=== PATIENT | female | born 1940 | race Caucasian/White ===

== ENCOUNTER 2017-07-01 15:43 | Emergency (ER) | payer MEDICARE, OTHER ==
--- NOTE | 2017-07-01 16:12 | ER Document Report ---
ED Medical Screen (RME) - General Chief Complaint: Chest Pain Stated Complaint: CHEST PAIN Time Seen by Provider: 07/01/17 16:10 Notes: Patient presents with 2 days of severe right-sided neck and arm pain. She states this feels similar to previous angina. She states she did have a stress test performed today but does not know the results of this yet. She does have a history of stents and coronary artery bypass graft. She also has a defibrillator and pacemaker. She is currently having pain in the right neck. I am unable to give nitro due to patient's blood pressure of 88 systolic. TRAVEL OUTSIDE OF THE [place] IN LAST 30 DAYS: No - Related Data Allergies/Adverse Reactions: simvastatin [From Zocor] Allergy (Verified 07/01/17 16:01) Past Medical History Renal/ Medical History: Denies: Hx Peritoneal Dialysis Physical Exam - Vital signs Vitals: Temp Pulse Resp BP Pulse Ox 97.5 F 94 16 88/62 L 98 07/01/17 15:56 07/01/17 15:56 07/01/17 15:56 07/01/17 15:56 07/01/17 15:56 Course - Vital Signs Vital signs: Temp Pulse Resp BP Pulse Ox 97.5 F 94 16 88/62 L 98 07/01/17 15:56 07/01/17 15:56 07/01/17 15:56 07/01/17 15:56 07/01/17 15:56
[2017-07-01 16:32] LABS: ABSOLUTE BASOPHILS # (AUTO) 0.1 10^3/uL (0.0-0.2); ABSOLUTE EOSINOPHILS # (AUTO) 0.1 10^3/uL (0.0-0.6); ABSOLUTE LYMPHOCYTES (AUTO) 1.1 10^3/uL (0.5-4.7); ABSOLUTE MONOCYTES (AUTO) 0.9 10^3/uL (0.1-1.4); ABSOLUTE NEUT (AUTO) 8.7 10^3/uL (1.7-8.2); BASOPHILS % (AUTO) 0.6 % (0-2); HEMATOCRIT 40.2 % (36.0-47.0); HEMOGLOBIN 13.9 g/dL (12.0-15.5); HGB HCT DIFFERENCE 1.5; LYMPHOCYTES % (AUTO) 10.3 % (13-45); MEAN CORPUSCULAR HEMOGLOBIN 33.3 pg (27.0-33.4); MEAN CORPUSCULAR HGB CONC 34.7 g/dL (32.0-36.0); MEAN CORPUSCULAR VOLUME 96 fl (80-97); MONOCYTES % (AUTO) 8.2 % (3-13); RED BLOOD COUNT 4.18 10^6/uL (3.72-5.28); RED CELL DISTRIBUTION WIDTH 13.7 % (11.5-14.0); SEGMENTED NEUTROPHILS % (AUTO) 79.9 % (42-78); WHITE BLOOD COUNT 10.8 10^3/uL (4.0-10.5)
[2017-07-01] MEDS ORDERED: ASPIRIN 325 MG TABLET PO ONE (16:40)
[2017-07-01] MEDS ORDERED: NORMAL SALINE 1000 ML 1,000 ML IV ONE (16:40)
--- NOTE | 2017-07-01 16:40 | ER Document Report ---
ED Cardiac - General Mode of Arrival: Wheelchair Information source: Patient TRAVEL OUTSIDE OF THE [place] IN LAST 30 DAYS: No - HPI Patient complains to provider of: Chest pain. denies: Shortness of breath Pain level currently: 4 Associated symptoms: Other - see above <ELVER GUTIERREZ - Last Filed: 07/01/17 17:40> <JERRODNEO NGUYỄNINE - Last Filed: 07/01/17 21:15> <LEXI MITTAL - Last Filed: 07/01/17 21:20> - General Chief Complaint: Chest Pain Stated Complaint: CHEST PAIN Time Seen by Provider: 07/01/17 16:10 Notes: Patient is a 77 year old female who presents to the ED with complaints of chronic chest pain and new onset left side neck pain and left arm pain. Patient states the pain has been new for the past 3 weeks. Patient also complains of dizziness with standing. She states she had her Ranexa increased 3 weeks ago from 1000 mg a day to 2000 mg a day by Dr. High from [facility]. Patients street openings inspector is Dr. Painting. Patients last heart cath was done between [id number] and she had stents placed at that time. Patient rates her pain as a 4/5 and states it worsened in the past 4-5 days. Patient has taken her aspirin today and states she has not missed any doses of her daily medication. Patient states she is no more sob than normal. Patient has some nausea and vomiting this morning. Patient denies any fever. Patient had a nuclear stress test done this morning but she does not yet have results. Patient was advised by them to come to the ED for evaluation based on her symptoms. PCP: Dr. Garcia (ELVER GUTIERREZ) - Related Data Allergies/Adverse Reactions: simvastatin [From Zocor] Allergy (Verified 07/01/17 16:01) Past Medical History - General Information source: Patient - Social History Smoking Status: Former Smoker Chew tobacco use (# tins/day): No Frequency of alcohol use: None Drug Abuse: None - Past Medical History Cardiac Medical History: Reports: Hx Congestive Heart Failure, Hx Heart Attack, Hx Hypertension Denies: Hx DVT Pulmonary Medical History: Reports: Hx COPD Renal/ Medical History: Denies: Hx Peritoneal Dialysis - Immunizations Hx Diphtheria, Pertussis, Tetanus Vaccination: Yes <ELVER GUTIERREZ - Last Filed: 07/01/17 17:40> - Social History Family History: Reviewed & Not Pertinent <LEXI MITTAL - Last Filed: 07/01/17 21:20> Review of Systems - Review of Systems Constitutional: No symptoms reported. denies: Fever EENT: No symptoms reported Cardiovascular: See HPI, Chest pain, Dizziness Respiratory: No symptoms reported. denies: Short of breath Gastrointestinal: No symptoms reported Genitourinary: No symptoms reported Female Genitourinary: No symptoms reported Musculoskeletal: See HPI, Neck pain - left side, Other - left arm pain Skin: No symptoms reported Hematologic/Lymphatic: No symptoms reported Neurological/Psychological: No symptoms reported <MATTELVER - Last Filed: 07/01/17 17:40> Physical Exam <ELVER GUTIERREZ - Last Filed: 07/01/17 17:40> <ELLIOT ANDREWS - Last Filed: 07/01/17 21:15> <LEXI MITTAL - Last Filed: 07/01/17 21:20> - Vital signs Vitals: Temp Pulse Resp BP Pulse Ox 97.5 F 94 16 88/62 L 98 07/01/17 15:56 07/01/17 15:56 07/01/17 15:56 07/01/17 15:56 07/01/17 15:56 - Notes Notes: GENERAL: Alert, interacts well. No acute distress. Patient appears dizzy upon standing. HEAD: Normocephalic, atraumatic. EYES: Pupils equal, round, and reactive to light. Extraocular movements intact. ENT: Oral mucosa moist, tongue midline. NECK: Full range of motion. Supple. Trachea midline. LUNGS: Clear to auscultation bilaterally, no wheezes, rales, or rhonchi. No respiratory distress. HEART: Regular rate and rhythm. No murmurs, gallops, or rubs. ABDOMEN: Soft, non-tender. Non-distended. Bowel sounds present in all 4 quadrants. EXTREMITIES: Moves all 4 extremities spontaneously. No edema, radial and dorsalis pedis pulses 2/4 bilaterally. No cyanosis. NEUROLOGICAL: Alert and oriented x3. Normal speech. PSYCH: Normal affect, normal mood. SKIN: Warm, dry, normal turgor. No rashes or lesions noted. (ELVER GUTIERREZ) Course - Laboratory Result Diagrams: 07/01/17 16:25 07/01/17 16:25 <ELVER GUTIERREZ - Last Filed: 07/01/17 17:40> - Laboratory Result Diagrams: 07/01/17 16:25 07/01/17 16:25 - Consults Dr. Stone Time consulted: 19:30 <ELLIOT ANDREWS - Last Filed: 07/01/17 21:15> - Laboratory Result Diagrams: 07/01/17 16:25 07/01/17 16:25 <LEXI MITTAL - Last Filed: 07/01/17 21:20> - Re-evaluation Re-evalutation: 07/01/17 21:16 Initial CBC shows slight leukocytosis 10.8, normal hemoglobin, CMP shows slightly low sodium at 133.1, she does have some kidney disease with a BUN of 41 and creatinine 1.72, speaking with patient this appears to be chronic although we do not have exact numbers to compare to. Initial cardiac enzymes are negative. Second set of cardiac enzymes not significantly changed at 0.013 and her CK and CK-MB have actually both declined. EKG is nonischemic. And repeat EKG is unchanged with an atrially sensed ventricularly paced rhythm. I did discuss this patient with Dr. Stone who is the street openings inspector on-call for her cardiology group, he did interpret her stress test for me which showed no ischemia and no significant change from prior imaging in December. Agrees that so long as her cardiac enzymes continue to remain negative she may be discharged after a second set and follow-up with them as an outpatient. 07/01/17 21:18 After a fluid bolus the patient's hypotension has resolved and her dizziness has decreased although it has not completely resolved. Patient will be discharged home. (LEXI MITTAL) - Vital Signs Vital signs: Temp Pulse Resp BP Pulse Ox 97.5 F 94 19 102/64 93 07/01/17 15:56 07/01/17 15:56 07/01/17 19:01 07/01/17 19:01 07/01/17 19:01 - Laboratory Laboratory results interpreted by me: 07/01/17 07/01/17 16:25 16:25 WBC 10.8 H Seg Neutrophils % 79.9 H Lymphocytes % 10.3 L Absolute Neutrophils 8.7 H Sodium 133.1 L Chloride 92 L BUN 41 H Creatinine 1.72 H Est GFR ( Amer) 35 L Est GFR (Non-Af Amer) 29 L AST 66 H - EKG Interpretation by Me Additional EKG results interpreted by me: 07/01/17 21:18 Initial EKG shows an atrially sensed ventricularly paced rhythm at a rate of 97 , no ectopy, no significant ST segment elevation, poor R-wave progression per my interpretation. Repeat EKG shows atrially sensed ventricularly paced rhythm at a rate of 93, no ST segment elevations, there is minimal ST segment depression in V3 and aVF which is not significant, no ectopy, poor R-wave progression per my interpretation. (LEXI MITTAL) - Consults Dr. Stone Reason for consultation: 07/01/17 19:[address] Romaine Stone with [facility] to discuss patient; he will interpret the patient's nuclear stress test and call back. 07/01/17 19:[address] Romaine Stone with [facility]. He states the patient's nuclear stress test is ischemic and similar to the previous. Patient' s ejection fraction is 20-25% which is unchanged. He recommends doing a rapid rule out of cardiac enzymes x2 each 3 hours apart; if these are normal then the patient can be discharged home. (ELLIOT ANDREWS) Discharge <ELVER GUTIERREZ - Last Filed: 07/01/17 17:40> <ELLIOT ANDREWS - Last Filed: 07/01/17 21:15> <LEXI MITTAL - Last Filed: 07/01/17 21:20> - Discharge Clinical Impression: Stable angina pectoris Condition: Stable Disposition: HOME, SELF-CARE Additional Instructions: I do not know what exactly is causing your left-sided neck and arm pain. It does not appear to be a heart attack today. Should your pain worsen, should your shortness of breath worsen or you develop any new or concerning symptoms please return to the emergency department immediately. Otherwise follow-up with your street openings inspector as an outpatient as scheduled. Scribe Attestation: 07/01/17 21:20 I personally performed the services described in the documentation, reviewed and edited the documentation which was dictated to the scribe in my presence, and it accurately records my words and actions. (LEXI MITTAL) Scribe Documentation - Scribe Written by Virginia:: virginia Mann. 07/01/2017, 1748 acting as scribe for :: Amelia <ELVER GUTIERREZ - Last Filed: 07/01/17 17:40>
[2017-07-01 16:45] LABS: ALANINE AMINOTRANSFERASE 50 U/L (9-52); ALBUMIN 4.9 g/dL (3.5-5.0); ALKALINE PHOSPHATASE 59 U/L (38-126); ANION GAP 15 (5-19); ASPARTATE AMINO TRANSFERASE 66 U/L (14-36); BILIRUBIN,DIRECT 0.3 mg/dL (0.0-0.4); BILIRUBIN,TOTAL 0.8 mg/dL (0.2-1.3); BLOOD UREA NITROGEN 41 mg/dL (7-20); CALCIUM 10.1 mg/dL (8.4-10.2); CARBON DIOXIDE 26 mmol/L (22-30); CHLORIDE 92 mmol/L (98-107); CREATININE RESULT 1.72 mg/dL (0.52-1.25); GLUCOSE 106 mg/dL (75-110); POTASSIUM 4.7 mmol/L (3.6-5.0); SODIUM 133.1 mmol/L (137-145); TOTAL PROTEIN 7.8 g/dL (6.3-8.2)
--- NOTE | 2017-07-01 16:59 | RADIOLOGY REPORT (SQ) ---
EXAM DESCRIPTION: CHEST SINGLE VIEW COMPLETED DATE/TIME: 07/01/2017 4:52 pm REASON FOR STUDY: chest pain COMPARISON: None. NUMBER OF VIEWS: One view. TECHNIQUE: Single frontal radiographic view of the chest acquired. LIMITATIONS: None. FINDINGS: LUNGS AND PLEURA: No opacities, masses or pneumothorax. No pleural effusion. MEDIASTINUM AND HILAR STRUCTURES: No masses. Contour normal. HEART AND VASCULAR STRUCTURES: Heart enlarged without failure. Normal vasculature. BONES: No acute findings. HARDWARE: Defibrillator. Sternotomy wires and coronary bypass markers. OTHER: No other significant finding. IMPRESSION: HEART ENLARGED WITHOUT FAILURE. NO OTHER SIGNIFICANT RADIOGRAPHIC FINDING IN THE CHEST. TECHNICAL DOCUMENTATION: JOB ID: [id number] [employer]- All Rights Reserved
--- NOTE | 2017-07-01 18:23 | EKG REPORT ---
SEVERITY:- ABNORMAL ECG - ATRIAL-SENSED VENTRICULAR-PACED RHYTHM : Confirmed by: Ruddy You MD 01-Jul-2017 18:23:05
[2017-07-01 21:04] LABS: CREATINE KINASE MB 2.49 ng/mL (<4.55); TROPONIN I 0.013 ng/mL
[2017-07-01 22:37] VITALS: BP 129/87
--- NOTE | 2017-07-02 07:50 | EKG REPORT ---
SEVERITY:- ABNORMAL ECG - ATRIAL-SENSED VENTRICULAR-PACED RHYTHM : Confirmed by: Ruddy You MD 02-Jul-2017 07:49:36
== END 2017-07-01 22:20 | disposition home or self-care (01) ==
LOC: ER 15:43
DX: I20.9 Angina pectoris, unspecified (principal); I10 Essential (primary) hypertension; N28.9 Disorder of kidney and ureter, unspecified; I25.2 Old myocardial infarction; M54.2 Cervicalgia; M79.602 Pain in left arm; R42 Dizziness and giddiness; R11.2 Nausea with vomiting, unspecified; J44.9 Chronic obstructive pulmonary disease, unspecified; Z79.899 Other long term (current) drug therapy; Z79.82 Long term (current) use of aspirin; Z98.61 Coronary angioplasty status; Z87.891 Personal history of nicotine dependence; Z88.8 Allergy status to other drugs, medicaments and biological substances; D72.829 Elevated white blood cell count, unspecified
CPT/HCPCS: 93005; 99285; 96360; 36415; 82553; 82550; 85025; 80053; 84484; 71010; 93010; A9270; J7030